=== PATIENT | female | born 1975 | race Hispanic/Latino ===

== ENCOUNTER → 2019-06-17 | Outpatient (CLI) | payer OTHER ==
[~2019-06-17] MED LIST: FLEXERIL PO; PRENTAB8 PO; VICO5TAB PO
--- NOTE | 2019-06-18 03:06 | REP ---
Clinical: Thyroid nodule. Comparison: 02/22/2005. Technique: Real time ramesh scale and color evaluation using linear high frequency transducer. Findings: Right thyroid lobe appears normal and measures 5.3 x 1.8 x 1.4 cm. Isthmus measures 3 mm in width. Left thyroid lobe measures 4.8 x 2.0 x 1.6 cm and includes complex hypoechoic nodule measuring 1.9 x 1.3 x 1.4 cm with calcification and posterior shadowing. Impression: 1. Complex partially calcified left thyroid nodule with morphological changes as compared to prior examination. Electronically Signed by Charles Amaya MD 06/18/2019 02:58 A
== END ==
LOC: M RAD 13:53
PROVIDERS: ATTEND Physician Assistant Medical
DX: E04.1 Nontoxic single thyroid nodule (principal)

== ENCOUNTER → 2020-05-08 | Outpatient (CLI) | payer MEDICARE, OTHER | LOC: M LABSMTC 15:15 | PROVIDERS: ATTEND Pediatrics | DX: Z11.59 Encounter for screening for other viral diseases (principal) ==

== ENCOUNTER → 2020-12-01 | Outpatient (CLI) | payer OTHER ==
--- NOTE | 2020-12-08 15:44 | REPMRS ---
Patient History The patient states she has not had a clinical breast exam in over a year. No known family history of cancer. Tomosynthesis is performed. Volpara breast density is c. Tyrer-Cuzick lifetime risk of breast cancer 8.8%. Patient states no breast complaints today. Patient has signed MRS History Sheet. Digital Woman Screen Mammo: December 01, 2020 - Exam #: [id number] Bilateral CC and MLO view(s) were taken. Technologist: Vianey Biggs Technologist FINDINGS: The breast tissue is heterogeneously dense. This may lower the sensitivity of mammography. There has been no change in the appearance of the mammogram from the prior studies. There is a moderate amount of residual fibroglandular tissue which is fairly symmetric. There is no interval development of dominant mass, areas of architectural distortion, or clustered microcalcification typical of malignancy. Assessment: BI-RADS/ACR category 1 mammogram. Negative Mammogram. Recommendation Routine screening mammogram in 1 year (for women over age 40). This mammogram was interpreted with the aid of an FDA-approved computer-aided dectection system. Electronically Signed By: Ben Gonzalez MD 12/08/20 [id number]
== END ==
LOC: M WHC 12:40
PROVIDERS: ATTEND Nurse Practitioner Primary Care
DX: Z12.31 Encounter for screening mammogram for malignant neoplasm of breast (principal)

== ENCOUNTER → 2021-07-16 | Outpatient (CLI) | payer OTHER | LOC: M RAD 15:21 | PROVIDERS: ATTEND Nurse Practitioner Primary Care | DX: E04.1 Nontoxic single thyroid nodule (principal) ==

== ENCOUNTER 2022-12-24 20:17 | Emergency (ER) | payer OTHER ==
[2022-12-24 20:18] VITALS: BP 124/75; TEMP 98.8; O2SAT 99
== END 2022-12-24 21:46 | disposition left against medical advice (07) ==
LOC: M ED 20:17
DX: Z53.21 Procedure and treatment not carried out due to patient leaving prior to being seen by health care provider (principal)

== ENCOUNTER → 2023-08-13 | Outpatient (CLI) | payer OTHER ==
[~2023-08-13] MED LIST changes: +SERT50TA29 PO; +THERTAB52 PO
== END ==
LOC: M WHC 14:16
PROVIDERS: ATTEND Nurse Practitioner Family
DX: Z12.31 Encounter for screening mammogram for malignant neoplasm of breast (principal)

== ENCOUNTER 2023-09-10 08:23 | Day surgery (SDC) | payer OTHER ==
[~2023-09-10] VITALS: Ht 160 cm; Wt 62.6 kg
[~2023-09-10 08:23] MED LIST changes: +BUSP30TA PO
[2023-09-10] MEDS: NS 1,000 ML IV ONE (08:45)
[2023-09-10] MEDS ORDERED: fentaNYL 100 MCG/2 ML INJECTION As Ordered ONE (09:48)
[2023-09-10] MEDS ORDERED: propofoL 200 MG/20 ML VIAL As Ordered ONE (09:49)
[2023-09-10 10:28] VITALS: TEMP 98.1
[2023-09-10 10:57] VITALS: BP 120/71; O2SAT 68
== END 2023-09-10 10:57 | disposition home or self-care (01) ==
LOC: M OPP 08:23
PROVIDERS: ATTEND Surgery
DX: D12.5 Benign neoplasm of sigmoid colon (principal); K64.1 Second degree hemorrhoids; P92.1 Regurgitation and rumination of newborn; K22.89 Other specified disease of esophagus; K44.9 Diaphragmatic hernia without obstruction or gangrene; K29.70 Gastritis, unspecified, without bleeding; B96.81 Helicobacter pylori [H. pylori] as the cause of diseases classified elsewhere; R10.13 Epigastric pain; Z79.899 Other long term (current) drug therapy; Z88.3 Allergy status to other anti-infective agents; Z88.5 Allergy status to narcotic agent; Z91.011 Allergy to milk products; Z91.018 Allergy to other foods; Z91.040 Latex allergy status; Z91.048 Other nonmedicinal substance allergy status
CPT/HCPCS: 43239; 45385; 88305; J3010

== ENCOUNTER 2023-10-30 11:35 | Emergency (ER) | payer OTHER ==
[2023-10-30] MEDS ORDERED: OMEP-173 (11:51)
[2023-10-30] MEDS ORDERED: FLON27.5 (11:51)
[2023-10-30] MEDS ORDERED: FEXO-13 (11:51)
[2023-10-30] MEDS ORDERED: ISOVUE-370 76% 100ML VIAL As Ordered ONE (12:01)
[2023-10-30 12:15] LABS: BASO % 0.5 % (0.0-1.0); EOS # 0.1 10^3/uL (0.0-0.5); EOS % 1.7 % (0.0-3.0); HEMATOCRIT 46.3 % (36.0-47.0); HEMOGLOBIN 14.7 g/dl (12.0-15.5); LYMPH # 2.2 10^3/uL (1.5-5.0); MEAN CORPUSCULAR HEMOGLOBIN 27.2 pg (27.0-33.0); MEAN CORPUSCULAR HGB CONC 31.7 g/dl (32.0-36.5); MEAN CORPUSCULAR VOLUME 85.7 fl (80.0-96.0); MONO # 0.3 10^3/uL (0.0-0.8); MONO % 5.3 % (2.0-8.0); NEUTROPHILS # 3.1 10^3/uL (1.5-8.5); NEUTROPHILS % 54.2 % (36.0-66.0); PLATELET COUNT, AUTOMATED 262 10^3/uL (150-450); WHITE BLOOD COUNT 5.8 10^3/uL (4.0-10.0)
[2023-10-30 12:41] LABS: BLOOD UREA NITROGEN 6 MG/DL (9-23); CALCIUM LEVEL 9.3 MG/DL (8.5-10.1); CARBON DIOXIDE LEVEL 29 MMOL/L (20-31); CHLORIDE LEVEL 104 MMOL/L (98-107); CREATININE FOR GFR 0.51 MG/DL (0.55-1.30); GLOMERULAR FILTRATION RATE > 60.0 (>58); GLUCOSE, FASTING 91 MG/DL (60-100); POTASSIUM SERUM 4.1 MMOL/L (3.5-5.1); SODIUM LEVEL 140 MMOL/L (136-145)
[2023-10-30] MEDS: NS 1,000 ML IV ONE (12:58)
[2023-10-30] MEDS: diphenhydrAMINE 50MG/ML VIAL IV ONE (12:58)
[2023-10-30] MEDS: METOCLOPRAMIDE INJ 10MG/2ML VIAL IV ONE (12:59)
[2023-10-30] MEDS: KETOROLAC 30 MG/ML 1ML VIAL IV ONE (12:59)
[2023-10-30] MEDS: ACETAMINOPHEN 500 MG TAB PO ONE (12:59)
[2023-10-30 13:00] LABS: ERYTHROCYTE SEDIMENTATION RATE 10 mm/hr (0-20)
[2023-10-30 14:00] LABS: INR 1.01
[2023-10-30 15:15] VITALS: BP 112/66; O2SAT 97
[2023-10-30 15:30] VITALS: TEMP 98.1
== END 2023-10-30 15:30 | disposition home or self-care (01) ==
LOC: M ED 11:35
DX: R51.9 Headache, unspecified (principal); E04.1 Nontoxic single thyroid nodule; F41.9 Anxiety disorder, unspecified; F32.9 Major depressive disorder, single episode, unspecified; Z90.89 Acquired absence of other organs; Z90.710 Acquired absence of both cervix and uterus; Z79.899 Other long term (current) drug therapy; Z88.5 Allergy status to narcotic agent; Z91.040 Latex allergy status; Z91.048 Other nonmedicinal substance allergy status
CPT/HCPCS: 70450; 70496; 70498; 71045; 80047; 80048; 85025; 85610; 85652; 85730; 93005; 93041; 94760; 96361; 96374; 96375; 99285; J1200; J1885; J2765; Q9967

== ENCOUNTER → 2024-03-22 | Outpatient (CLI) | payer OTHER ==
[~2024-03-22] MED LIST changes: +FEXO-13; +FLON27.5; +OMEP-173
== END ==
LOC: M PLAIMG 07:41
PROVIDERS: ATTEND Physician Assistant
DX: J32.8 Other chronic sinusitis (principal)

== ENCOUNTER → 2024-04-03 | Outpatient (CLI) | payer OTHER ==
[2024-04-06 19:48] LABS: D002-IGE D FARINAE MITE 0.13 kU/L (<0.10); E001-IGE CAT EPITHELIUM/DANDER < 0.10 kU/L (<0.10); E005-IGE DOG DANDER/HAIR/EPITH < 0.10 kU/L (<0.10); G006-IGE TIMOTHY GRASS < 0.10 kU/L (<0.10); M001-IGE PENICILLIUM CHRYSOGEN 0.17 kU/L (<0.10); M003-IGE D pteronyssinus 0.16 kU/L (<0.10); M006-IGE ALTERNARIA alternata < 0.10 kU/L (<0.10); T001-IGE MAPLE/BOX ELDER < 0.10 kU/L (<0.10); T003-IGE COMMON SILVER BIRCH < 0.10 kU/L (<0.10); W001-IGE RAGWEED, SHORT < 0.10 kU/L (<0.10)
== END ==
LOC: M LAB 09:02
PROVIDERS: ATTEND Allergy & Immunology
DX: J30.1 Allergic rhinitis due to pollen (principal)

== ENCOUNTER → 2024-08-13 | Outpatient (CLI) | payer OTHER | LOC: M WHC 14:34 | PROVIDERS: ATTEND Nurse Practitioner Family | DX: Z12.31 Encounter for screening mammogram for malignant neoplasm of breast (principal); R92.323 Mammographic fibroglandular density, bilateral breasts ==

== ENCOUNTER 2024-12-23 09:58 | Emergency (ER) | payer OTHER ==
[~2024-12-23] VITALS: Ht 160 cm; Wt 59.1 kg
[2024-12-23 11:31] LABS: BASO # 0.0 10^3/uL (0.0-0.2); BASO % 0.2 % (0.0-1.0); EOS # 0.1 10^3/uL (0.0-0.5); EOS % 1.2 % (0.0-3.0); LYMPH # 2.0 10^3/uL (1.5-5.0); LYMPH % 40.5 % (24.0-44.0); MONO # 0.3 10^3/uL (0.0-0.8); MONO % 5.2 % (2.0-8.0); NEUTROPHILS # 2.6 10^3/uL (1.5-8.5); NEUTROPHILS % 52.7 % (36.0-66.0); PLATELET COUNT, AUTOMATED 214 10^3/uL (150-450)
[2024-12-23 12:00] LABS: CK-MB VALUE MASS < 1.0 NG/ML (<3.6)
[2024-12-23 12:06] LABS: ALT/SGPT 22 U/L (7.0-40); AST/SGOT 23 U/L (<34); CALCIUM LEVEL 9.0 MG/DL (8.5-10.1); CARBON DIOXIDE LEVEL 28 MMOL/L (20-31); CHLORIDE LEVEL 106 MMOL/L (98-107); CPK CREATINE PHOSPHOKINASE 58 U/L (34-145); CREATININE FOR GFR 0.51 MG/DL (0.55-1.30); GLOMERULAR FILTRATION RATE > 90.0 (>58); POTASSIUM SERUM 3.9 MMOL/L (3.5-5.1); SODIUM LEVEL 145 MMOL/L (136-145)
[2024-12-23] MEDS ORDERED: GABA-1171 PO (13:22)
[2024-12-23] MEDS: KETOROLAC 30 MG/ML 1 ML VIAL IV ONE (13:24)
[2024-12-23 13:38] VITALS: BP 132/78; TEMP 98.3; O2SAT 99
== END 2024-12-23 13:40 | disposition home or self-care (01) ==
LOC: M ED 09:58
DX: R20.2 Paresthesia of skin (principal); R53.1 Weakness; F41.9 Anxiety disorder, unspecified; Z90.49 Acquired absence of other specified parts of digestive tract; Z90.89 Acquired absence of other organs; Z91.048 Other nonmedicinal substance allergy status; Z88.5 Allergy status to narcotic agent; Z91.040 Latex allergy status; Z79.891 Long term (current) use of opiate analgesic
CPT/HCPCS: 70551; 71046; 80048; 80076; 82550; 82553; 84484; 85025; 93005; 96374; 99284; J1885

== ENCOUNTER → 2025-03-11 | Outpatient (CLI) | payer OTHER ==
[~2025-03-11] MED LIST changes: +GABA-1171 PO
[2025-03-11 11:25] LABS: FREE T4 1.28 NG/DL (0.89-1.76)
== END ==
LOC: M PLALAB 08:51
PROVIDERS: ATTEND Physician Assistant
DX: E04.1 Nontoxic single thyroid nodule (principal)

== ENCOUNTER → 2025-04-26 | Outpatient (REF) | payer MEDICARE, OTHER | LOC: M SFHCWAGY 13:12 | PROVIDERS: ATTEND Physician Assistant | DX: Z12.4 Encounter for screening for malignant neoplasm of cervix (principal) ==